=== PATIENT | male | born 1950 | race Caucasian/White ===

== ENCOUNTER 2021-04-19 23:45 | Emergency (ER) | payer MEDICARE ==
[~2021-04-19] VITALS: Ht 154.9 cm; Wt 90.7 kg
[2021-04-20] MEDS ORDERED: IV NORMAL SALINE 1000 ML BAG IV ONE
[2021-04-20] MEDS ORDERED: ONDANSETRON 4 MG/2 ML VIAL IV ONE
--- NOTE | 2021-04-20 00:15 | NUR ---
SEEN AND EXAMINED BY MIKAELA
[2021-04-20] MEDS ORDERED: ONDANSETRON 4 MG/2 ML VIAL ONE (00:24)
--- NOTE | 2021-04-20 00:30 | NUR ---
FLUIDS NORMAL SALINE IN PROGRESS VIA THE RIGHT AC NO 20.IN PROGRESS.
[2021-04-20] MEDS ORDERED: LACT10SO3 PO (01:19)
[2021-04-20] MEDS ORDERED: SPIR50TA5 PO (01:19)
[2021-04-20] MEDS ORDERED: ERGO500040 PO (01:19)
[2021-04-20] MEDS ORDERED: FURO20TA4 PO (01:19)
[2021-04-20 01:49] LABS: *BILIRUBIN,URIN NEGATIVE (NEGATIVE); *CLARITY,URINE CLEAR (CLEAR); *COLOR,URINE YELLOW (YELLOW); *KETONES,URINE NEGATIVE (NEGATIVE); LEUKOCYTE ESTERASE ,URINE NEGATIVE (NEGATIVE); NITRITE, URINE NEGATIVE (NEGATIVE); PH,URINE 6.5 (5.0-8.0); UGLUCOSE 2+ (NEGATIVE)
[2021-04-20 01:51] LABS: *BLOOD, URINE TRACE (NEGATIVE)
[2021-04-20 02:10] LABS: BACTERIA,URINE NONE SEEN /HPF (NONE SEEN); RBC,URINE 0-3 /HPF (0-3); SQUAMOUS EPITHELIAL CELL,UR FEW /HPF (NONE SEEN); WBC,URINE 0-3 /HPF (0-3)
[2021-04-20 02:21] LABS: MEAN CORPUSCULAR HEMOGLOBIN 33.2 uug (23.8-33.4); PLATELET COUNT (AUTO) 172 K/uL (152-348)
[2021-04-20 02:32] LABS: CREATININE 1.6 mg/dL (0.6-1.3); POTASSIUM 4.4 mmol/L (3.5-5.1)
[2021-04-20 02:39] LABS: BILIRUBIN,DIRECT 1.1 mg/dL (0.0-0.2); BILIRUBIN,TOTAL 2.7 mg/dL (0.2-1.0); TOTAL PROTEIN, SERUM 7.2 g/dL (6.4-8.2)
--- NOTE | 2021-04-20 02:44 | NUR ---
Dr. Cantu speaking with Dr. Lloyd Vizcarra of [facility].
--- NOTE | 2021-04-20 02:45 | NUR ---
VOIDED PATIENT ABLE TO USED THE URINAL 250 ML OF YELLOWISH URINE .
--- NOTE | 2021-04-20 02:46 | NUR ---
PER : SHYANNE PATIENT IS GOING TO [facility] IN [place]. DR: SPOKED WITH BETHEL FOR THE TRANSFER .
--- NOTE | 2021-04-20 04:34 | NUR ---
CALLED ZOHREH OF [facility] FOR REPORT ,RN IS ON HER BREAK ,ADVISED TO CALL US HERE IN [place] ONCE SHES DONE WITH HER BREAK PATIENT IS GOING TO ROOM 2417.TEL NO . [phone]
--- NOTE | 2021-04-20 05:22 | NUR ---
CALLED REPORT TO MICHAEL CARRILLO TEL NO .[phone],GOING TO ROOM 2417. USING SBAR. INFORMED GERARDO SHE CAN CALL US HERE IN [place] [facility] FOR ANY OTHER QUESTIONS REGARDING PATIENTS .
--- NOTE | 2021-04-20 06:53 | NUR ---
CALLED PATIENT SPOKED WITH MARGARETH OSUNA AND INFORMED PATIENT IS GOING TO [facility] ROOM 2417,GAVE REPORT TO GERARDO .
--- NOTE | 2021-04-20 07:35 | NUR ---
REPORT GIVEN TO IRIS RODRIGUEZ USING SBAR .
--- NOTE | 2021-04-20 08:33 | NUR ---
Patient Tranfers to outside Facility: [facility] Physician: Dr Torres Location:Room 2417 RN: Kandace accepted report or ALS ambulance: [facility] with electrical engineering designer Montana Solis
== END 2021-04-20 08:35 | disposition short-term general hospital (02) ==
LOC: ER 23:47
DX: K70.31 Alcoholic cirrhosis of liver with ascites (principal); Z20.822 Contact with and (suspected) exposure to COVID-19; K76.6 Portal hypertension; J90 Pleural effusion, not elsewhere classified; J98.19 Other pulmonary collapse; E87.1 Hypo-osmolality and hyponatremia; R77.8 Other specified abnormalities of plasma proteins
CPT/HCPCS: 36415; 71045; 74176; 80048; 80076; 81001; 82140; 83690; 84484; 85025; 85730; 87426; 93005; 96361; 96374; 99285; J2405; U0003; 70030-TC; A4663; J7030